=== PATIENT | female | born 1965 | race Caucasian/White ===

== ENCOUNTER 2018-03-20 05:55 | Inpatient (IN) ==
[2018-03-20] MEDS ORDERED: ENOXAPARIN 100 MG/ML SYRINGE SUBCUT ONE (06:08)
[2018-03-20] MEDS ORDERED: MORPHINE 4 MG/1 ML VIAL ONE (06:09)
[2018-03-20] MEDS ORDERED: TICAGRELOR 90 MG TABLET ONE (06:09)
[2018-03-20] MEDS ORDERED: ONDANSETRON 4 MG/2 ML VIAL ONE (06:09)
[2018-03-20] MEDS ORDERED: ASPIRIN 325 MG TABLET ONE (06:09)
[2018-03-20] MEDS ORDERED: NITROGLYCERIN 2% OINT 1 INCH/GM PACK TOP ONE (06:13)
[2018-03-20] MEDS ORDERED: NITROGLYCERIN DRIP 50 MG/250 ML BOTTLE IV ONE (06:15)
[2018-03-20] MEDS ORDERED: MIDAZOLAM 2 MG/2 ML VIAL ONE ×2 (06:25→07:06)
[2018-03-20] MEDS ORDERED: TICAGRELOR 90 MG TABLET PO STA (06:27)
[2018-03-20] MEDS ORDERED: ONDANSETRON 4 MG/2 ML VIAL IV STA (06:27)
[2018-03-20] MEDS ORDERED: MORPHINE 4 MG/1 ML VIAL IV STA (06:27)
[2018-03-20] MEDS ORDERED: ASPIRIN 325 MG TABLET PO STA (06:27)
[2018-03-20] MEDS ORDERED: ENOXAPARIN 100 MG/ML SYRINGE SUBCUT STA (06:27)
[2018-03-20] MEDS ORDERED: NITROGLYCERIN DRIP 50 MG/250 ML BOTTLE IV SCH (06:30)
[2018-03-20] MEDS ORDERED: fentaNYL 100 MCG/2 ML VIAL ONE (06:32)
[2018-03-20 06:34] LABS: Basophils # 0.1 10*3/uL (0.0-0.2); Basophils % 0.6 % (0.0-0.8); Eosinophils # 0.2 10*3/uL (0.0-0.87); Eosinophils % 2.4 % (0.00-10.9); Hematocrit 40.8 VOL% (35.7-47.0); Hemoglobin 14.2 GM/DL (12.0-16.0); Immature Granulocytes % 0.4 %; Immature Granulocytes Absolute 0.04 #; Lymphocytes # 1.8 10*3/uL (1.4-4.0); Mean Corpuscular HGB Conc 34.8 GM/DL (32-36); Mean Corpuscular Hemoglobin 27 PG (27-34); Mean Corpuscular Volume 78.3 FL (87-102); Mean Platelet Volume 9.2 FL (9.6-12.0); Monocytes # 0.4 10*3/uL (0.11-0.8); Monocytes % 4.6 % (1.7-12.7); Platelet Count 287 T/CUMM (130-400); Red Blood Count 5.21 MC/CUMM (3.8-5.5); Red Cell Distribution Width 14.2 % (9.3-17.3); White Blood Count 9.6 T/CUMM (4-12)
[2018-03-20] MEDS ORDERED: ENOXAPARIN 60 MG/0.6 ML SYRINGE ONE (06:35)
[2018-03-20 06:40] LABS: INR 0.9; PT Patient Result 9.5 SECS; Partial Thromboplastin Time 24.7 SECS (0-40)
[2018-03-20] MEDS ORDERED: METOPROLOL TARTRATE 5 MG/5 ML VIAL IV ONE (06:42)
[2018-03-20 06:54] LABS: Albumin 3.7 G/DL (3.4-5.0); Bilirubin,Total 0.6 MG/DL (0.2-1.0); Calcium 8.9 MG/DL (8.5-10.1); Osmolality,Calculated 283.8 MOS/KG (273-304); Potassium 4.3 MMOL/L (3.5-5.1); Total Protein 7.5 G/DL (6.4-8.3)
[2018-03-20] MEDS ORDERED: ceFAZolin 1,000 MG VIAL ONE (07:10)
[2018-03-20] MEDS ORDERED: HYDROmorphone 2 MG/1 ML VIAL ONE ×2 (07:11→09:12)
[2018-03-20] MEDS ORDERED: SODIUM CHLORIDE 0.45% 1,000 ML IV SCH (08:00)
[2018-03-20] MEDS ORDERED: ONDANSETRON 4 MG/2 ML VIAL IV PRN (08:00)
[2018-03-20] MEDS: HYDROmorphone 2 MG/1 ML VIAL IV PRN (09:25)
[2018-03-20] MEDS ORDERED: GLUCAGON 1 MG VIAL IM PRN ×3 (12:05→15:35)
[2018-03-20] MEDS ORDERED: DEXTROSE 50% 25 GM/50 ML VIAL IV PRN ×3 (12:05→15:35)
[2018-03-20] MEDS: INSULIN REGULAR 100 UNIT/ML SUBCUT SCH ×3 (12:49→20:38)
[2018-03-20] MEDS: ASPIRIN EC 81 MG TABLET PO SCH (13:33)
[2018-03-20] MEDS: METOPROLOL TARTRATE 25 MG TABLET PO SCH ×2 (13:45→20:39)
[2018-03-20] MEDS ORDERED: MAGNESIUM HYDROXIDE SUSP 30 ML UDCUP PO PRN (15:37)
[2018-03-20] MEDS ORDERED: diphenhydrAMINE CAP 25 MG CAPSULE PO PRN (15:37)
[2018-03-20] MEDS ORDERED: ALPRAZolam 0.25 MG TABLET PO PRN (15:37)
[2018-03-20] MEDS ORDERED: INSULIN REGULAR 100 UNIT/ML SUBCUT SCH (18:00)
[2018-03-20] MEDS: TICAGRELOR 90 MG TABLET PO SCH (20:38)
[2018-03-20] MEDS: ATORVASTATIN 80 MG TABLET PO SCH (20:39)
[2018-03-21] MEDS: HYDROmorphone 2 MG/1 ML VIAL IV PRN (03:18)
[2018-03-21 05:40] LABS: Basophils # 0.1 10*3/uL (0.0-0.2); Basophils % 0.6 % (0.0-0.8); Eosinophils # 0.2 10*3/uL (0.0-0.87); Eosinophils % 2.3 % (0.00-10.9); Hematocrit 42.2 VOL% (35.7-47.0); Hemoglobin 13.6 GM/DL (12.0-16.0); Immature Granulocytes % 0.5 %; Immature Granulocytes Absolute 0.04 #; Lymphocytes # 1.2 10*3/uL (1.4-4.0); Lymphocytes % 14.9 % (21.3-54.2); Mean Corpuscular HGB Conc 32.2 GM/DL (32-36); Mean Corpuscular Hemoglobin 26 PG (27-34); Mean Corpuscular Volume 80.2 FL (87-102); Mean Platelet Volume 8.8 FL (9.6-12.0); Monocytes # 0.3 10*3/uL (0.11-0.8); Monocytes % 3.2 % (1.7-12.7); Neutrophils # 6.1 10*3/uL (1.4-7.4); Neutrophils % 78.5 % (38.7-73.9); Platelet Count 241 T/CUMM (130-400); Red Blood Count 5.26 MC/CUMM (3.8-5.5); Red Cell Distribution Width 14.4 % (9.3-17.3); White Blood Count 7.8 T/CUMM (4-12)
[2018-03-21 06:06] LABS: Calcium 8.9 MG/DL (8.5-10.1); Potassium 3.9 MMOL/L (3.5-5.1)
[2018-03-21 06:11] LABS: Albumin 3.5 G/DL (3.4-5.0); Bilirubin,Total 0.8 MG/DL (0.2-1.0); Calcium 8.8 MG/DL (8.5-10.1); Osmolality,Calculated 279.8 MOS/KG (273-304); Potassium 3.8 MMOL/L (3.5-5.1); Total Protein 7.8 G/DL (6.4-8.3)
[2018-03-21] MEDS: INSULIN REGULAR 100 UNIT/ML SUBCUT SCH ×4 (07:50→21:53)
[2018-03-21] MEDS: TICAGRELOR 90 MG TABLET PO SCH ×2 (08:00→21:53)
[2018-03-21] MEDS: METOPROLOL TARTRATE 25 MG TABLET PO SCH ×2 (08:00→21:52)
[2018-03-21] MEDS: ASPIRIN EC 81 MG TABLET PO SCH (08:27)
[2018-03-21] MEDS ORDERED: LOSARTAN 25 MG TABLET PO SCH (09:00)
[2018-03-21] MEDS: LOSARTAN 25 MG TABLET PO SCH ×2 (09:36→21:52)
[2018-03-21] MEDS ORDERED: POLYCARBOPHIL 625 MG TABLET PO PRN (14:59)
[2018-03-21] MEDS: ATORVASTATIN 80 MG TABLET PO SCH (21:52)
[2018-03-22 04:38] LABS: Calcium 8.8 MG/DL (8.5-10.1); Osmolality,Calculated 286.8 MOS/KG (273-304); Potassium 3.4 MMOL/L (3.5-5.1)
[2018-03-22 08:24] VITALS: BP 109/69
[2018-03-22 08:30] LABS: Basophils % 0.4 % (0.0-0.8); Eosinophils # 0.2 10*3/uL (0.0-0.87); Eosinophils % 2.7 % (0.00-10.9); Hematocrit 37.1 VOL% (35.7-47.0); Hemoglobin 12.7 GM/DL (12.0-16.0); Immature Granulocytes % 0.3 %; Immature Granulocytes Absolute 0.02 #; Lymphocytes # 1.6 10*3/uL (1.4-4.0); Lymphocytes % 22.7 % (21.3-54.2); Mean Corpuscular HGB Conc 34.2 GM/DL (32-36); Mean Corpuscular Hemoglobin 26 PG (27-34); Mean Platelet Volume 9.2 FL (9.6-12.0); Monocytes # 0.4 10*3/uL (0.11-0.8); Neutrophils # 4.8 10*3/uL (1.4-7.4); Neutrophils % 68.9 % (38.7-73.9); Platelet Count 233 T/CUMM (130-400); Red Blood Count 4.82 MC/CUMM (3.8-5.5); Red Cell Distribution Width 14.2 % (9.3-17.3)
[2018-03-22 09:00] LABS: Troponin I 0.988 NG/ML (0.00-0.045)
[2018-03-22] MEDS ORDERED: POTASSIUM CHLORIDE 20 MEQ TABLET PO SCH (09:00)
[2018-03-22] MEDS: METOPROLOL TARTRATE 25 MG TABLET PO SCH (09:26)
[2018-03-22] MEDS: LOSARTAN 25 MG TABLET PO SCH (09:26)
[2018-03-22] MEDS: TICAGRELOR 90 MG TABLET PO SCH (09:27)
[2018-03-22] MEDS: ASPIRIN EC 81 MG TABLET PO SCH (09:27)
[2018-03-22] MEDS: INSULIN REGULAR 100 UNIT/ML SUBCUT SCH (09:27)
== END 2018-03-22 10:45 | disposition home or self-care (01) | DRG 247 ==
LOC: N.ED 05:55 → N.SDSINP 06:26 → N.ED 06:26 → N.CL 06:26 → N.ICU 06:26 → N.CL 07:25 → N.ED 07:29 → N.ICU 12:34 → N.TELES 03-21 13:22
PROVIDERS: ADMIT Internal Medicine Interventional Cardiology; ATTEND Internal Medicine Interventional Cardiology
PROC: CLCCHCL (ICD-10-PCS; 2018-03-20 06:45)